=== PATIENT | male | born 1965 | race Two or more races ===

== ENCOUNTER 2025-01-11 17:13 | Inpatient (IN) | payer OTHER ==
[~2025-01-11] VITALS: Ht 175.3 cm; Wt 115.7 kg
[2025-01-11] MEDS ORDERED: 0.9 % SODIUM CHLORIDE 1,000 ML IV ONE ×2 (18:00→22:15)
--- NOTE | 2025-01-11 18:00 | NUR ---
SE RECIBE PACIENTE EN AMBULANCIA ALERTA Y ORIENTADO EN SOLA KIT ESFERAS; INDICA QUE MIENTRAS TRABAJABA PRESENTO VISION BORROSA Y DEBILIDAD. SE MONITOREAN VS TY SE UBICA
--- NOTE | 2025-01-11 18:43 | NUR ---
SE ORIENTA PTE SOBRE TX, REFIERE ENTENDER Y ACEPTAR. SE SHAUNNA MUESTRAS DE LABORATORIO, CANALIZADO PREVIAMENTE EN AMBULANCIA, PATENTE, SE COLOCAN IV FLUIDS. PENDIENTE CT SCAN Y XRAYS YA NOTIFICADOS.
[2025-01-11 18:46] LABS: BASO % 0.2 % (0.1-1.2); EOS # 0.04 (0.04-0.54); EOS % 0.3 % (0.7-7.0); HEMATOCRIT 43.8 % (40.1-51.0); HEMOGLOBIN 15.1 g/dL (13.7-17.5); LYMPH # 1.59 (1.18-3.74); LYMPH % 12.6 % (19.3-53.1); MEAN CORPUSCULAR HEMOGLOBIN 29.9 pg (25.6-32.2); MONO # 0.64 (0.24-0.82); MONO % 5.1 % (4.7-12.5); NEUT # 10.28 (1.56-6.13); NEUT % 81.6 % (34.0-71.1); PLATELET COUNT 192 K/uL (163-369); RED BLOOD COUNT 5.05 M/uL (4.63-6.08); RED CELL DISTRIBUTION WIDTH 13.3 % (11.6-14.4)
[2025-01-11 19:08] LABS: INR 1.02; PARTIAL THROMBOPLASTIN TIME 23.5 SECONDS (22.0-34.0); PROTHROMBIN TIME 11.1 SECONDS (9.0-11.5)
[2025-01-11 19:09] LABS: URINE APPEARANCE Clear; URINE BILIRRUBIN Negative (NEGATIVE); URINE BLOOD Negative; URINE COLOR Yellow; URINE GLUCOSE Negative (NEGATIVE); URINE KETONE Trace (NEGATIVE); URINE LEUKOCYTE Negative; URINE NITRATE Negative; URINE PROTEIN 30 (NEGATIVE)
[2025-01-11 19:13] LABS: URINE BACTERIA 14.6 uL (0.0-1933); URINE EPITHELIAL CELLS 1.4 uL (0.0-38.8)
[2025-01-11 19:15] LABS: URINE RBC 1.9 uL (0.0-20.8); URINE WBC 1.2 uL (0.0-23.2)
[2025-01-11 19:27] LABS: ALBUMIN 4.5 gm/dL (3.4-5.0); BILIRUBIN TOTAL 0.8 mg/dL (0.3-1.2); CALCIUM 9.6 mg/dL (8.5-10.1); CREATININE SERUM 2.63 mg/dL (0.70-1.30); GFR 24.97; GLOBULINA 3.9 G/DL (2.4-3.5); POTASSIUM 4.08 mEq/L (3.5-5.1); TOTAL PROTEIN 8.4 gm/dL (6.4-8.2)
[2025-01-11] MEDS ORDERED: ACETAMINOPHEN 500 MG GEL..CAP PO PRN (22:15)
[2025-01-11] MEDS ORDERED: 0.9 % SODIUM CHLORIDE 1,000 ML IV SCH (22:15)
[2025-01-12 02:28] VITALS: BP 147/81; O2SAT 99
[2025-01-12 04:00] VITALS: BP 180/91; O2SAT 96
[2025-01-12 06:37] LABS: ALBUMIN 3.5 gm/dL (3.4-5.0); BILIRUBIN TOTAL 0.73 mg/dL (0.3-1.2); CALCIUM 8.3 mg/dL (8.5-10.1); CREATININE SERUM 1.87 mg/dL (0.70-1.30); GFR 37.01; GLOBULINA 3.5 G/DL (2.4-3.5); POTASSIUM 3.88 mEq/L (3.5-5.1)
[2025-01-12 08:41] VITALS: BP 160/63; O2SAT 97
[2025-01-12] MEDS ORDERED: ISOSORBIDE MONONITRATE 30 MG TABLET PO SCH (09:00)
[2025-01-12] MEDS ORDERED: ASPIRIN 81 MG TAB.CHEW PO SCH (09:00)
[2025-01-12] MEDS ORDERED: ATORVASTATIN CALCIUM 40 MG TABLET PO SCH (09:00)
[2025-01-12] MEDS ORDERED: ENOXAPARIN SODIUM 30 MG/0.3 ML SYRINGE SUBCUTANEO SCH (09:00)
[2025-01-12] MEDS ORDERED: FAMOTIDINE/PF 20 MG in 0.9 % SODIUM CHLORIDE 8 ML IV PUSH SCH (09:00)
[2025-01-12] MEDS ORDERED: CLOPIDOGREL BISULFATE 75 MG TABLET PO SCH (09:00)
[2025-01-12] MEDS ORDERED: METOPROLOL SUCCINATE 25 MG TAB.SR.24H PO SCH (09:00)
[2025-01-12] MEDS ORDERED: AMLODIPINE BESYLATE 5 MG TABLET PO SCH (09:00)
[2025-01-12 17:49] VITALS: BP 147/87
[2025-01-13 02:37] VITALS: BP 150/77; O2SAT 96
[2025-01-13 07:01] LABS: BASO % 0.5 % (0.1-1.2); EOS # 0.21 (0.04-0.54); EOS % 3.3 % (0.7-7.0); HEMATOCRIT 39.2 % (40.1-51.0); HEMOGLOBIN 13.2 g/dL (13.7-17.5); LYMPH # 1.94 (1.18-3.74); LYMPH % 30.8 % (19.3-53.1); MEAN CORPUSCULAR HEMOGLOBIN 29.7 pg (25.6-32.2); MONO # 0.46 (0.24-0.82); MONO % 7.3 % (4.7-12.5); NEUT # 3.64 (1.56-6.13); NEUT % 57.8 % (34.0-71.1); PLATELET COUNT 133 K/uL (163-369); RED BLOOD COUNT 4.45 M/uL (4.63-6.08); RED CELL DISTRIBUTION WIDTH 13.2 % (11.6-14.4)
[2025-01-13 07:29] LABS: ALBUMIN 3.2 gm/dL (3.4-5.0); BILIRUBIN TOTAL 0.59 mg/dL (0.3-1.2); CALCIUM 8.3 mg/dL (8.5-10.1); CREATININE SERUM 1.45 mg/dL (0.70-1.30); GFR 49.64; GLOBULINA 3.1 G/DL (2.4-3.5); POTASSIUM 4.34 mEq/L (3.5-5.1); TOTAL PROTEIN 6.3 gm/dL (6.4-8.2)
[2025-01-13 09:05] VITALS: BP 150/80; O2SAT 99
[2025-01-13 18:58] VITALS: BP 170/85
[2025-01-14 08:53] VITALS: BP 153/68; O2SAT 96
[2025-01-14 18:47] LABS: BASO % 0.4 % (0.1-1.2); EOS # 0.19 (0.04-0.54); EOS % 2.8 % (0.7-7.0); HEMATOCRIT 39.2 % (40.1-51.0); HEMOGLOBIN 13.7 g/dL (13.7-17.5); LYMPH # 2.01 (1.18-3.74); LYMPH % 29.6 % (19.3-53.1); MEAN CORPUSCULAR HEMOGLOBIN 29.8 pg (25.6-32.2); MONO % 5.9 % (4.7-12.5); NEUT # 4.14 (1.56-6.13); NEUT % 61.2 % (34.0-71.1); PLATELET COUNT 149 K/uL (163-369); RED CELL DISTRIBUTION WIDTH 12.9 % (11.6-14.4)
[2025-01-14 18:49] VITALS: BP 150/80
[2025-01-14 19:10] LABS: ALBUMIN 3.6 gm/dL (3.4-5.0); BILIRUBIN TOTAL 0.5 mg/dL (0.3-1.2); CALCIUM 8.8 mg/dL (8.5-10.1); CREATININE SERUM 1.44 mg/dL (0.70-1.30); GFR 50.04; GLOBULINA 3.3 G/DL (2.4-3.5); POTASSIUM 4.21 mEq/L (3.5-5.1); TOTAL PROTEIN 6.9 gm/dL (6.4-8.2)
[2025-01-15 01:53] VITALS: BP 150/85; O2SAT 98
[2025-01-15 07:00] VITALS: BP 155/82; O2SAT 97
== END 2025-01-15 19:49 | disposition home or self-care (01) | DRG 683 ==
LOC: ER 17:13 → MEDJ 23:03
PROVIDERS: General Practice; Internal Medicine Nephrology; ADMIT Internal Medicine; ATTEND Internal Medicine
PROC: BT43ZZZ Ultrasonography of Bilateral Kidneys (ICD-10-PCS; principal; 2025-01-11)
PROC: B020ZZZ Computerized Tomography (CT Scan) of Brain (ICD-10-PCS; 2025-01-11)
PROC: 4A12X4Z Monitoring of Cardiac Electrical Activity, External Approach (ICD-10-PCS; 2025-01-13)
DX: N17.9 Acute kidney failure, unspecified (principal); M62.82 Rhabdomyolysis; E86.0 Dehydration; R55 Syncope and collapse; I13.10 Hypertensive heart and chronic kidney disease without heart failure, with stage 1 through stage 4 chronic kidney disease, or unspecified chronic kidney disease; N18.9 Chronic kidney disease, unspecified